=== PATIENT | female | born 1990 | race Hispanic/Latino ===

== ENCOUNTER 2021-06-10 14:29 | Emergency (ER) | payer SELFPAY ==
[~2021-06-10] VITALS: Ht 152.4 cm; Wt 69.1 kg
[2021-06-10] MEDS ORDERED: KEPPRA1000 M1 (14:44)
[2021-06-10] MEDS ORDERED: KETOROLAC TROMETHAMINE 30 MG/ML VIAL IV STA (14:53)
[2021-06-10] MEDS ORDERED: PREVACID30 MG PEG (16:11)
== END 2021-06-10 16:19 | disposition home or self-care (01) ==
LOC: FSED 14:54
DX: R10.13 Epigastric pain (principal); G40.909 Epilepsy, unspecified, not intractable, without status epilepticus; Z87.19 Personal history of other diseases of the digestive system; F17.210 Nicotine dependence, cigarettes, uncomplicated
CPT/HCPCS: 80053; 80076; 81003; 85025; 99283